=== PATIENT | female | born 1945 | race Caucasian/White ===

== ENCOUNTER 2018-03-10 09:49 | Day surgery (SDC) | payer MEDICARE, BC ==
[~2018-03-10] VITALS: Ht 160 cm; Wt 66.7 kg
[~2018-03-10 09:49] MED LIST: Advair Hfa 230-12 GM; LOSA50; MELO7.5; Omeprazole20 M1; TRAZ50; VENLAFAXINE HCL75 MG
[2018-03-10] MEDS ORDERED: HYDCHL12.5 (10:28)
== END 2018-03-10 11:55 | disposition home or self-care (01) ==
LOC: ORSCSDS 09:49
PROVIDERS: Internal Medicine Gastroenterology
PROC: 0DJD8ZZ Inspection of Lower Intestinal Tract, Via Natural or Artificial Opening Endoscopic (ICD-10-PCS; principal; 2018-03-10 11:00)
DX: Z12.11 Encounter for screening for malignant neoplasm of colon (principal); K64.8 Other hemorrhoids; E03.9 Hypothyroidism, unspecified; I10 Essential (primary) hypertension; G47.33 Obstructive sleep apnea (adult) (pediatric); Z87.891 Personal history of nicotine dependence; Z79.899 Other long term (current) drug therapy
CPT/HCPCS: J7120

== ENCOUNTER → 2018-12-25 | Outpatient (CLI) | payer MEDICARE, BC ==
[~2018-12-25] MED LIST changes: +HYDCHL12.5
== END | disposition home or self-care (01) ==
LOC: LAB SHORT 08:00 → LAB EV 08:00
DX: N39.0 Urinary tract infection, site not specified (principal); Z86.19 Personal history of other infectious and parasitic diseases
CPT/HCPCS: 87070; 87077; 87086; 87186

== ENCOUNTER → 2019-01-08 | Outpatient (CLI) | payer MEDICARE, BC | END | disposition home or self-care (01) | LOC: LAB SHORT 15:24 → LAB EV 15:24 | DX: N39.0 Urinary tract infection, site not specified (principal); Z86.19 Personal history of other infectious and parasitic diseases | CPT/HCPCS: 87070; 87077; 87086; 87186 ==

== ENCOUNTER → 2019-08-24 | Outpatient (CLI) | payer MEDICARE, BC ==
[~2019-08-24] MED LIST changes: +ASCO500 PO; +ASPI81CH PO; +COQ-10100 MG PO; +ESTRADIOL VAG; +FISH OIL PO; +MAGNESIUM PO; +MATURE MVI PO; +OXYC5 PO; +PROBIOTIC1 EAC1 PO; +SUPER B COMPLEX PO; +TRIPLE ACTION JOINT PO; +VITAMIN A PO; +VITAMIN D350 MCG PO
== END | disposition home or self-care (01) ==
LOC: LAB SHORT 10:20 → LAB 10:20 → LAB UCHC 10:20 → LAB FUT 07-09 10:05
DX: Z09 Encounter for follow-up examination after completed treatment for conditions other than malignant neoplasm (principal); Z86.19 Personal history of other infectious and parasitic diseases
CPT/HCPCS: 87081

== ENCOUNTER → 2019-09-10 | Outpatient (CLI) | payer MEDICARE, BC ==
[2019-09-10 12:44] LABS: Appearance, Urine Clear (Clear); Bilirubin, Urine Neg (Neg); Blood, Urine Neg (Neg); Color, Urine Yellow (P-Yellow); Glucose Qualitative, Urine Neg (Neg); Ketones, Urine Neg (Neg); Leukocyte Esterase, Urine 2+ (Neg); Nitrite, Urine Pos (Neg); Protein, Urine Neg (Neg); Urobilinogen, Urine NORM (Normal); pH, Urine 6.5 (5.0-8.0)
[2019-09-10 13:06] LABS: Bacteria Many /hpf; Red Blood Cells, Urine Not Seen /hpf (0-2); Squamous Epithelial Cells Not Seen /hpf (Few); White Blood Cells, Urine 50-100 /hpf (0-5)
== END ==
LOC: LAB UCHC 08:20 → LAB SHORT 08:20 → LAB FUT 07-09 11:00
PROVIDERS: Internal Medicine
DX: N39.0 Urinary tract infection, site not specified (principal); Z86.19 Personal history of other infectious and parasitic diseases
CPT/HCPCS: 81001; 87077; 87081; 87086; 87186

== ENCOUNTER 2019-09-20 12:21 | Day surgery (SDC) | payer MEDICARE, BC ==
[~2019-09-20] VITALS: Ht 160 cm; Wt 56.2 kg
[~2019-09-20 12:21] MED LIST changes: -ASPI81CH PO; -OXYC5 PO
--- NOTE | 2019-09-20 12:59 | NUR ---
History, Chart, Medications and Allergies reviewed before start of procedure. Patient confirms NPO status and agrees with scheduled surgery. Lungs clear T/O to Auscultation. Pre-Op teaching done. Pt verbalizes understanding. Patient reports completing Chlorhexadine shower X2 prior to admission to hospital. PATIENT HAD NO JEWELRY, DENTURES, CONTACTS IN PLACE AT THE TIME OF ADMIT. GLASSES TO REMAIN IN PLACE FOR NOW, WILL PLACE IN PACU.
--- NOTE | 2019-09-20 13:26 | NUR ---
NOZIN SWABS COMPLETED IN SDS IN BILATERAL NARES.
--- NOTE | 2019-09-20 14:32 | NUR ---
PATIENT UP FOR UNMEASURED VOID.
--- NOTE | 2019-09-20 14:58 | NUR ---
OR RERPORT COMPLETED WITH MALORIE Lopez RN AT BEDSIDE.
--- NOTE | 2019-09-20 18:00 | NUR ---
pt transferred to room on own bed, a/o x 4, pleasant/cooperative. pt reports no pain, no n/v. spinal anesthesia with sensation at L1-2, unable to wiggle toes, no touch sensation, good capillary refill, pedal pulses strong, ble warm and dry
[2019-09-21 04:54] LABS: BASOPHILS ABSOLUTE AUTO 0.01 K/mm3 (0.00-0.23); BASOPHILS PERCENT AUTO 0 % (0-2); EOSINOPHILS PERCENT AUTO 0 % (0-6); Hematocrit 43.3 % (33.0-51.0); Hemoglobin 14.8 g/dL (11.5-16.0); IMMATURE GRAN ABSOLUTE AUTO 0.02 K/mm3 (0.00-0.10); IMMATURE GRAN PERCENT AUTO 0 % (0-1); LYMPHOCYTES ABSOLUTE AUTO 1.33 K/mm3 (0.84-5.20); LYMPHOCYTES PERCENT AUTO 17 % (21-46); MONOCYTES PERCENT AUTO 6 % (4-13); Mean Corpuscular HGB 31.6 pg (26.0-34.0); Mean Corpuscular HGB Conc 34.2 g/dL (31.5-36.5); Mean Corpuscular Volume 92 fL (80-100); Mean Platelet Volume 10.9 fL (9.1-12.4); NEUTROPHILS ABSOLUTE AUTO 6.17 K/mm3 (1.96-9.15); NEUTROPHILS PERCENT AUTO 77 % (41-73); Platelet Count 195 K/mm3 (150-400); RDW Coefficient Variation 12.8 % (11.7-14.2); RDW Standard Deviation 43.5 fL (35.1-46.3); Red Blood Cell Count 4.69 M/mm3 (3.80-5.20); White Blood Cell Count 8.03 K/mm3 (4.00-11.30)
[2019-09-21 05:08] LABS: Anion Gap 6 mmol/L (6-16); Blood Urea Nitrogen 19 mg/dL (8-24); Bun/Creatinine Ratio 23.1 (12.0-20.0); CO2, Blood 25 mmol/L (21-32); Calcium, Blood 8.5 mg/dL (8.5-10.1); Chloride, Blood 108 mmol/L (98-108); Creatinine, Blood 0.82 mg/dL (0.40-1.00); Glomerular Filtration Rate >60 (60-); Glucose, Blood 149 mg/dL (70-99); Magnesium, Blood 1.9 mg/dL (1.6-2.4); Potassium, Blood 4.2 mmol/L (3.5-5.5); Sodium, Blood 139 mmol/L (136-145)
--- NOTE | 2019-09-21 06:26 | NUR ---
POD 1 S/P L DAFNE. PT VSS T/O NIGHT. DRESSING CDI. PAIN MGD PER EMAR W/REP RELIEF. PT REP NUMBNESS RESOLVED, IS UP OOB W/FWW+1 ASSIST. PT DID NEED I/O CATH DONE X1 R/T RETENTION, VOIDED W/O DIFFICULTY THIS AM. PT USING CALL LIGHT FOR ASSISTANCE, WILL CONT TO MONITOR UNTIL REP GIVEN TO ONCOMING RN.
--- NOTE | 2019-09-21 09:51 | NUR ---
09/21/19 0951 Catie Salazar VERIFICATIONS: EDIT CHART.
[2019-09-21] MEDS ORDERED: OXYC5 PO (09:54)
[2019-09-21] MEDS ORDERED: ASPI81CH PO (09:54)
--- NOTE | 2019-09-21 10:36 | NUR ---
DISCHARGE CLEARED THERAPY, PAIN WELL MANAGED, DRSG SITE WNL @ D/C, EATING, DRINKING, VOIDING WELL. ESCORTED OUT VIA W/C.
== END 2019-09-21 10:35 | disposition home or self-care (01) ==
LOC: ORSCMMR 12:21 → ORD 14:00 → SURS 17:51 → ORSCMMR 17:51 → SURS 09-21 10:35
PROVIDERS: Orthopaedic Surgery
PROC: 0SRD0J9 Replacement of Left Knee Joint with Synthetic Substitute, Cemented, Open Approach (ICD-10-PCS; principal; 2019-09-20 14:00)
DX: M17.11 Unilateral primary osteoarthritis, right knee (principal); I10 Essential (primary) hypertension; G47.33 Obstructive sleep apnea (adult) (pediatric); Z87.891 Personal history of nicotine dependence
CPT/HCPCS: 36415; 73560-LT; 80048; 83735; 85025; 88300; 97110; 97116; 97161; C1713; C1776; J0171; J0690; J0735; J1100; J1885; J2250; J2370; J2405; J2704; J2795; J7120

== ENCOUNTER 2020-07-06 13:59 | Emergency (ER) | payer OTHER, MEDICARE, BC ==
[~2020-07-06] VITALS: Ht 160 cm; Wt 62.6 kg
[~2020-07-06 13:59] MED LIST changes: +ASPI81CH PO; +OXYC5 PO
[2020-07-06] MEDS ORDERED: ESTRADIOL10 MCG PO (14:11)
== END 2020-07-06 15:45 | disposition home or self-care (01) ==
LOC: ER 13:59
DX: M25.561 Pain in right knee (principal); Z88.8 Allergy status to other drugs, medicaments and biological substances; Z79.3 Long term (current) use of hormonal contraceptives; Z87.891 Personal history of nicotine dependence
CPT/HCPCS: 73562-RT; 99284-25

== ENCOUNTER 2020-08-14 09:01 | Day surgery (SDC) | payer MEDICARE, BC ==
[~2020-08-14] VITALS: Ht 160 cm; Wt 62.2 kg
[~2020-08-14 09:01] MED LIST changes: +ESTRADIOL PO; +ESTRADIOL10 MCG PO; +MULVITA PO
--- NOTE | 2020-08-14 10:08 | NUR ---
Ambulatory in Day Surgery. Surgical site prepped with 2% Chlorhexidine cloth wipe. Deborah Paws warming gown applied. Lungs clear T/O to Auscultation. Patient confirms NPO status and agrees with scheduled surgery. Pre-Op teaching done. Pt verbalizes understanding. Patient States Post-Procedure ride home has been arranged. Patient reports completing Chlorhexadine shower X2 prior to admission to hospital.
--- NOTE | 2020-08-14 18:58 | NUR ---
PT HAS BEEN STABLE POST OP. PT STILL HAS DECREASED SENSATION R/T SPINAL ANESTHESIA. PT HAS NOT BEEN SAFE TO GET OOB YET. DENIES PAIN. PT HAS NOT VOIDED YET POST OP, BLADDER SCAN 426, WILL STRAIGHT CATH PER ORDERS. CONT IV FLUIDS. PT EATING AND DRINKING WELL. PAS, TEDS AND POLAR PACK IN PLACE. USES CALL LIGHT APPROPRIATELY NEEDED.
--- NOTE | 2020-08-14 22:45 | NUR ---
PATIENT IS NOT HAVING ANY PAIN ASSOCIATED WITH RT KNEE SURGERY. NO NUMBNESS OR TINGLING IN LE, MOVES WELL OOB. ABLE TO VOID IN BEDPAN AND BR BEFORE WALK. AMBULATED WELL IN HALLWAY WITH FWW, GAIT BELT,AND SBA. POLAR PACK ON. CALL LIGHT IN REACH.
--- NOTE | 2020-08-15 05:11 | NUR ---
PATIENT HAS SLEPT MOST OF THE NIGHT, WAKES TO VERBAL STIMULI. UP TO BR NEEDED WITH SBA, FWW, AND GAIT BELT. VOIDING WELL. DRINKING FLUIDS. PAIN IS CONTROLLED WITH MINIMAL PAIN MEDICATIONS. POLAR PACK ON WITH PILLOW CASE OVER SKIN TO HELP WITH SLEEP, SHE SAID THE EXTREME COLD WAS KEEPING HER AWAKE. CALL LIGHT IN REACH.
[2020-08-15 05:32] LABS: BASOPHILS ABSOLUTE AUTO 0.01 K/mm3 (0.00-0.23); BASOPHILS PERCENT AUTO 0 % (0-2); EOSINOPHILS PERCENT AUTO 0 % (0-6); Hematocrit 44.8 % (33.0-51.0); Hemoglobin 15.5 g/dL (11.5-16.0); IMMATURE GRAN ABSOLUTE AUTO 0.03 K/mm3 (0.00-0.10); IMMATURE GRAN PERCENT AUTO 0 % (0-1); LYMPHOCYTES ABSOLUTE AUTO 1.31 K/mm3 (0.84-5.20); LYMPHOCYTES PERCENT AUTO 12 % (21-46); MONOCYTES ABSOLUTE AUTO 0.89 K/mm3 (0.16-1.47); MONOCYTES PERCENT AUTO 8 % (4-13); Mean Corpuscular HGB 32.8 pg (26.0-34.0); Mean Corpuscular HGB Conc 34.6 g/dL (31.5-36.5); Mean Corpuscular Volume 95 fL (80-100); Mean Platelet Volume 11.4 fL (9.1-12.4); NEUTROPHILS ABSOLUTE AUTO 9.08 K/mm3 (1.96-9.15); NEUTROPHILS PERCENT AUTO 80 % (41-73); Platelet Count 184 K/mm3 (150-400); RDW Coefficient Variation 13.4 % (11.7-14.2); Red Blood Cell Count 4.73 M/mm3 (3.80-5.20); White Blood Cell Count 11.32 K/mm3 (4.00-11.30)
[2020-08-15 05:58] LABS: Anion Gap 6 mmol/L (6-16); Blood Urea Nitrogen 14 mg/dL (8-24); Bun/Creatinine Ratio 20.1 (12.0-20.0); CO2, Blood 26 mmol/L (21-32); Calcium, Blood 8.7 mg/dL (8.5-10.1); Chloride, Blood 108 mmol/L (98-108); Glomerular Filtration Rate >60 (60-); Glucose, Blood 125 mg/dL (70-99); Potassium, Blood 4.7 mmol/L (3.5-5.5); Sodium, Blood 140 mmol/L (136-145)
[2020-08-15] MEDS ORDERED: ESTRADIOL1 MG PO (09:44)
[2020-08-15] MEDS ORDERED: OXYC5 PO (09:45)
[2020-08-15] MEDS ORDERED: ACET500 PO (09:45)
[2020-08-15] MEDS ORDERED: ASPI81CH PO (09:46)
--- NOTE | 2020-08-15 10:32 | NUR ---
DISCHARGE CLEARED THERAPY, PAIN WELL MANAGED, EATING/DRINKING/VOIDING. SCRIPT, DRSGS, & POLAR PACK GIVEN. ESCORTED OUT VIA W/C TO SPOUSE.
== END 2020-08-15 10:18 | disposition home or self-care (01) ==
LOC: ORSCMMR 09:01 → ORD 10:45 → ORSCMMR 11:15 → SURS 13:45 → ORSCMMR 13:45 → SURS 08-15 10:18
PROVIDERS: Orthopaedic Surgery
PROC: 0SRC0JA Replacement of Right Knee Joint with Synthetic Substitute, Uncemented, Open Approach (ICD-10-PCS; principal; 2020-08-14 11:15)
PROC: 8E0Y0CZ Robotic Assisted Procedure of Lower Extremity, Open Approach (ICD-10-PCS; principal; 2020-08-14 11:15)
DX: M17.11 Unilateral primary osteoarthritis, right knee (principal); I10 Essential (primary) hypertension; G47.33 Obstructive sleep apnea (adult) (pediatric); E03.9 Hypothyroidism, unspecified; Z87.891 Personal history of nicotine dependence; Z79.899 Other long term (current) drug therapy
CPT/HCPCS: 27447; S2900; 36415; 73560-RT; 80048; 83735; 85025; 88300; 97110; 97116; 97162; 97530; A9270; C1776; J0171; J0690; J0735; J1100; J1885; J2370; J2405; J2704; J2795; J3010; J7120

== ENCOUNTER → 2023-02-10 | Outpatient (CLI) | payer MEDICARE, BC ==
[~2023-02-10] MED LIST changes: +ACET500 PO; +ESTRADIOL1 MG PO
[2023-02-10 16:59] LABS: BASOPHILS ABSOLUTE AUTO 0.06 K/mm3 (0.00-0.23); BASOPHILS PERCENT AUTO 1 % (0-2); EOSINOPHILS ABSOLUTE AUTO 0.05 K/mm3 (0.00-0.68); EOSINOPHILS PERCENT AUTO 1 % (0-6); Hematocrit 49.6 % (33.0-51.0); IMMATURE GRAN ABSOLUTE AUTO 0.01 K/mm3 (0.00-0.10); IMMATURE GRAN PERCENT AUTO 0 % (0-1); LYMPHOCYTES ABSOLUTE AUTO 2.77 K/mm3 (0.84-5.20); LYMPHOCYTES PERCENT AUTO 46 % (21-46); MONOCYTES ABSOLUTE AUTO 0.43 K/mm3 (0.16-1.47); MONOCYTES PERCENT AUTO 7 % (4-13); Mean Corpuscular HGB 32.3 pg (26.0-34.0); Mean Corpuscular HGB Conc 34.3 g/dL (31.5-36.5); Mean Corpuscular Volume 94 fL (80-100); Mean Platelet Volume 10.3 fL (9.1-12.4); NEUTROPHILS ABSOLUTE AUTO 2.65 K/mm3 (1.96-9.15); NEUTROPHILS PERCENT AUTO 44 % (41-73); Platelet Count 248 K/mm3 (150-400); RDW Coefficient Variation 13.2 % (11.7-14.2); RDW Standard Deviation 46.3 fL (35.1-46.3); Red Blood Cell Count 5.27 M/mm3 (3.80-5.20); White Blood Cell Count 5.97 K/mm3 (4.00-11.30)
[2023-02-10 17:19] LABS: Albumin, Blood 3.7 g/dL (3.4-5.0); Bilirubin, Total 0.4 mg/dL (0.1-1.0); Calcium, Blood 9.6 mg/dL (8.5-10.1); Creatinine, Blood 0.96 mg/dL (0.40-1.00); Globulin, Blood 3.7 g/dL (2.2-4.0); Potassium, Blood 4.6 mmol/L (3.5-5.5); Total Protein, Blood 7.4 g/dL (6.4-8.2)
== END | disposition home or self-care (01) ==
LOC: LAB 15:05 → LAB SHORT 15:05
PROVIDERS: Family Medicine
DX: I10 Essential (primary) hypertension (principal)
CPT/HCPCS: 80053; 85025